=== PATIENT | male | born 2005 | race African-American/Black ===

== ENCOUNTER 2024-05-19 17:07 | Emergency (ER) | payer SELFPAY ==
--- NOTE | ~2024-05-19 | XR_ITS ---
CHEST RADIOGRAPH, PA AND LATERAL CLINICAL HISTORY: cough x 1 month . COMPARISON: None available TECHNIQUE: PA and lateral views of the chest. FINDINGS The cardiomediastinal silhouette is unremarkable. The lungs are clear. Visualized osseous structures and soft tissues are unremarkable. IMPRESSION: No focal infiltrate or effusion. Reviewed, dictated and finalized at location A.
[2024-05-19 17:13] VITALS: BP 170/102; PULSE 117; RESP 18; TEMP 36.9; O2SAT 100
--- NOTE | 2024-05-19 18:19 | ED.URI ---
HPI - URI/Sore Throat General Chief Complaint: Upper Respiratory Infection Stated Complaint: cough x 1 mos Time Seen by Provider: 05/19/24 18:19 Source: patient Mode of arrival: ambulatory Limitations: no limitations History of Present Illness HPI Narrative: Patient is a 18 y/o male, with PMH of childhood asthma, who presents to the ED with c/o a cough. Patient reports having a persistent cough for the past 1 month. States he occasionally brings up mucous and white phlegm with the cough. He does report having sinus drainage, nasal congestion. Has been taking OTC Robitussin and Tylenol for his sx's. States he otherwise feels fine. Denies fevers, hemoptysis, significant SOB. Related Data Allergies Allergy/AdvReac Type Severity Reaction Status Date / Time No Known Allergies Allergy Verified 05/19/24 17:08 Review of Systems Review of Systems: All systems reviewed & are unremarkable except as noted in HPI. All systems reviewed & are unremarkable except as noted in HPI and below Exam Narrative: GENERAL: Well-appearing, morbidly obese with BMI of 44.5, and in no acute distress. HEAD: Normocephalic, atraumatic. CHEST: Clear to auscultation. ?No respiratory distress. No wheezing or focal lung sounds. HEART: Regular rate and rhythm.? MSK: No gross deformities. Moves all extremities equally. NEURO: ?Alert and oriented x3. No focal deficits. Course Vital Signs Vital signs: Vital Signs Temperature 98.5 F 05/19/24 17:13 Pulse Rate 117 H 05/19/24 17:13 Respiratory Rate 18 05/19/24 17:13 Blood Pressure 170/102 H 05/19/24 17:13 Pulse Oximetry 100 05/19/24 17:13 Oxygen Delivery Room Air 05/19/24 17:13 Temperature 98.5 F 05/19/24 17:13 Pulse Rate 117 H 05/19/24 17:13 Respiratory Rate 18 05/19/24 17:13 Blood Pressure 170/102 H 05/19/24 17:13 Pulse Oximetry 100 05/19/24 17:13 Oxygen Delivery Room Air 05/19/24 17:13 MDM - URI/Sore Throat MDM Narrative Medical decision making narrative: Patient presented to ED with 1 month history of persistent cough. Denies other significant associated symptoms. States he has previously tested negative for COVID. Patient was initially tachycardic upon arrival. This was resolved by the time of my evaluation. Heart rate in the 80s. Exam is unremarkable. Patient in no acute distress. Suspect bronchitis. Chest x-ray is clear. Patient will be discharged with Tessalon Perles and Medrol Dosepak. Discussed additional OTC therapies to try for cold sx's/allergies. Advised to follow-up primary care doctor for further evaluation. Given return precautions. Discharged in stable condition. Medical Records Attestation: I reviewed the patient's medical records. Imaging Data Attestation: I personally reviewed and interpreted this imaging study as follows: Radiologist's impression: ITS Impressions Chest X-Ray 05/19/24 18:51 IMPRESSION: No focal infiltrate or effusion. Discharge Plan Discharge Clinical Impression: Bronchitis Cough Qualifiers: Cough type: subacute Qualified Code(s): R05.2 - Subacute cough Patient Disposition: Home, Self-Care Condition: Stable Instructions: Antibiotic Form, Acute Bronchitis (ED), Chronic Cough (ED) Additional Instructions: Take steroid pack as prescribed over next several days. Utilize Tessalon Perles as needed for cough. Utilize Tylenol and Ibuprofen for discomfort. Recommend [id number] cough and cold medicines for symptom relief, Zyrtec, Delsym, Mucinex, DayQuil, NyQuil, Sudafed, Robitussin, TheraFlu. Follow with primary care doctor for further evaluation. Return to the ED if you experience chest pain, difficulty breathing, unable to keep down food or drink, coughing blood, severe pain, persistent fevers, or any other symptoms of concern. Prescriptions: New benzonatate 200 mg capsule 200 mg PO TID PRN (Reason: cough) Qty: 20 0RF methylprednisolone [Medrol ([place])]
[2024-05-19 18:55] VITALS: PULSE 87
[2024-05-19 18:59] VITALS: BP 140/72; PULSE 80; RESP 16; TEMP 36.6; O2SAT 100
== END 2024-05-19 20:47 | disposition home or self-care (01) ==
PROVIDERS: Emergency Provider Physician Assistant
DX: J40 Bronchitis, not specified as acute or chronic (principal); R05.2 Subacute cough
CPT/HCPCS: 71046; 99283